=== PATIENT | female | born 1935 | race Caucasian/White ===

== ENCOUNTER 2017-12-19 00:42 | Emergency (ER) | payer OTHER ==
--- OUTSIDE RECORDS SUMMARY | 2017-12-19 00:45 | XMS REPORT | Clinical Summary ---
:1935 Author Organization [facility] Address [address] [place] [address] Care Team Providers Name Role Phone Edward Ceballos MD Primary Care Provider Allergies Active Allergy Reactions Severity Noted Date Comments Cephalexin Rash Low 09/01/2015 Penicillins Swelling, Rash High 09/01/2015 Current Medications Prescription Sig. Disp. Refills Start Date End Date Status zolpidem (AMBIEN) 5 MG Take 5 mg by Active tablet mouth nightly as needed for sleep. irbesartan (AVAPRO) Take 300 mg Active 300 MG tablet by mouth nightly. aspirin (ECOTRIN) 81 Take 81 mg Active MG enteric coated by mouth tablet daily. nitroglycerin Place 1 Active (NITRODUR) 0.4 mg/hr patch on the skin as needed. rosuvastatin (CRESTOR) Take 5 mg by Active 5 MG tablet mouth daily. esomeprazole (NexIUM) Take 1 30 capsule 3 11/20/2017 Active 40 MG capsule (40 9 capsuleIndications: mg total) by Gastroesophageal mouth daily reflux disease without before esophagitis breakfast. hydrALAZINE Take 10 mg 1 12/03/2017 Active (APRESOLINE) 10 MG by mouth tablet daily as needed. valsartan (DIOVAN) 160 Take 160 mg Discontinued MG tablet by mouth 8 daily. hydrALAZINE Take 10 mg Discontinued (APRESOLINE) 10 MG by mouth 3 8 tablet (three) times a day. simvastatin (ZOCOR) 20 Take 20 mg Discontinued MG tablet by mouth 8 nightly. diltiazem CD (CardIZEM Take 120 mg Discontinued CD) 120 MG 24 hr by mouth 8 capsule daily. Active Problems Problem Noted Date Small bowel obstruction (HCC) 12/10/2017 Encounters Date Type Specialty Care Team Description 12/14/2017 Procedure Pass Gastroenterology 12/13/2017 Anesthesia Event Gastroenterology Madhu, Jose Luis Casey MD 12/10/2017 Hospital General Internal Nathanael Napier Small bowel - Encounter Medicine MD Threesa obstruction (HCC) 12/14/2017 Denise Spann (Primary Dx) 12/10/2017 Emergency Emergency Medicine Nathanael Napier Pain of upper abdomen (Primary Dx); MD Theresa Gastroesophageal reflux disease, esophagitis presence not specified 11/20/2017 Office Visit Gastroenterology Dex Corley Gastroesophageal reflux disease without esophagitis (Primary Dx); MD Fidelina Constipation, unspecified constipation type after 12/18/2016 Social History Tobacco Use Types Packs/Day Years Used Date Never Smoker Smokeless Tobacco: Never Used Alcohol Use Drinks/Week oz/Week Comments Yes Sex Assigned at Date Recorded Not on file Last Filed Vital Signs Vital Sign Reading Time Taken Blood Pressure 149/81 12/14/2017 7:56 AM CDT Pulse 69 12/14/2017 7:56 AM CDT Temperature 36.1 C (96.9 F) 12/14/2017 7:56 AM CDT Respiratory Rate 16 12/14/2017 7:56 AM CDT Oxygen Saturation 94% 12/14/2017 7:56 AM CDT Inhaled Oxygen Concentration - - Weight 63.8 kg (140 lb 9.6 oz) 12/10/2017 9:10 PM CDT Height 154.9 cm (5' 1") 12/10/2017 9:10 PM CDT Body Mass Index 26.57 12/10/2017 9:10 PM CDT Plan of Treatment Health Maintenance Due Date Last Done Comments SHINGRIX VACCINE (#1) 1986 ZOSTER VACCINE 1996 PNEUMOCOCCAL POLYSACCHARIDE VACCINE AGE 65 AND OVER 2001 PNEUMOCOCCAL-13 2001 INFLUENZA VACCINE 09/26/2017 Procedures Procedure Name Priority Date/Time Associated Comments Diagnosis ESTIMATED GFR Routine 12/14/2017 3:40 Results for this AM CDT procedure are in the results section. BASIC METABOLIC PANEL Routine 12/14/2017 3:40 Results for this AM CDT procedure are in the results section. XR ABDOMEN 2 VW AP W Routine 12/13/2017 10:33 Results for this UPRIGHT AND/OR AM CDT procedure are in DECUBITUS the results section. ESTIMATED GFR Routine 12/13/2017 4:20 Results for this AM CDT procedure are in the results section. PHOSPHORUS LEVEL Routine 12/13/2017 4:20 Results for this AM CDT procedure are in the results section. MAGNESIUM LEVEL Routine 12/13/2017 4:20 Results for this AM CDT procedure are in the results section. CBC WITH PLATELET AND Routine 12/13/2017 4:20 Results for this DIFFERENTIAL AM CDT procedure are in the results section. BASIC METABOLIC PANEL Routine 12/13/2017 4:20 Results for this AM CDT procedure are in the results section. CONSULT TO OSTOMY CARE Routine 12/12/2017 3:30 NURSE PM CDT HC COMPLETE BLD COUNT STAT 12/12/2017 1:31 Results for this W/AUTO DIFF PM CDT procedure are in the results section. ESTIMATED GFR STAT 12/12/2017 12:40 Results for this PM CDT procedure are in the results section. PHOSPHORUS LEVEL STAT 12/12/2017 12:40 Results for this PM CDT procedure are in the results section. MAGNESIUM LEVEL STAT 12/12/2017 12:40 Results for this PM CDT procedure are in the results section. LACTIC ACID LEVEL STAT 12/12/2017 12:40 Results for this PM CDT procedure are in the results section. BASIC METABOLIC PANEL STAT 12/12/2017 12:40 Results for this PM CDT procedure are in the results section. XR ABDOMEN 1 VW Routine 12/11/2017 9:25 Results for this PORTABLE AM CDT procedure are in the results section. HEMOGLOBIN A1C Routine 12/11/2017 6:40 Results for this AM CDT procedure are in the results section. HC COMPLETE BLD COUNT Routine 12/11/2017 6:40 Results for this W/AUTO DIFF AM CDT procedure are in the results section. ESTIMATED GFR Routine 12/11/2017 4:30 Results for this AM CDT procedure are in the results section. COMPREHENSIVE METABOLIC Routine 12/11/2017 4:30 Results for this PANEL AM CDT procedure are in the results section. CBC WITH PLATELET AND Routine 12/11/2017 4:30 Results for this DIFFERENTIAL AM CDT procedure are in the results section. CT ABDOMEN PELVIS W STAT 12/10/2017 5:35 Results for this CONTRAST PM CDT procedure are in the results section. LACTIC ACID, I-STAT STAT 12/10/2017 5:10 Results for this PM CDT procedure are in the results section. HC COMPLETE BLD COUNT STAT 12/10/2017 5:10 Results for this W/AUTO DIFF PM CDT procedure are in the results section. TROPONIN, I-STAT Timed 12/10/2017 12:00 Results for this PM CDT procedure are in the results section. URINALYSIS STAT 12/10/2017 11:15 Results for this AM CDT procedure are in the results section. LACTIC ACID, I-STAT Timed 12/10/2017 8:58 Results for this AM CDT procedure are in the results section. ESTIMATED GFR STAT 12/10/2017 8:58 Results for this AM CDT procedure are in the results section. TROPONIN, I-STAT STAT 12/10/2017 8:58 Results for this AM CDT procedure are in the results section. CREATINE KINASE, TOTAL STAT 12/10/2017 8:58 Results for this (CPK) AM CDT procedure are in the results section. AMYLASE LEVEL STAT 12/10/2017 8:58 Results for this AM CDT procedure are in the results section. COMPREHENSIVE METABOLIC STAT 12/10/2017 8:58 Results for this PANEL AM CDT procedure are in the results section. HC COMPLETE BLD COUNT STAT 12/10/2017 8:58 Results for this W/AUTO DIFF AM CDT procedure are in the results section. ECG ED PRELIMINARY Routine 12/10/2017 8:52 Results for this INTERPRETATION AM CDT procedure are in the results section. ECG 12-LEAD STAT 12/10/2017 8:31 Results for this AM CDT procedure are in the results section. after 12/18/2016 Results Estimated GFR (12/14/2017 3:40 AM)Only the most recent of5 resultswithin the time period is included. Estimated GFR 86 mL/min/1.73 m2 [facility] DEPARTMENT OF Comment: PATHOLOGY AND GENOMIC CatergoryUnitsInterpretation MEDICINE G1 >=90 Normal or high G2 60-89Mildly decreased [id number] to moderately decreased [id number] to severely decreased G4 15-29Severely decreased G5 <15Kidney failure The eGFR was calculated using the Chronic Kidney Disease Epidemiology Collaboration (CKD-EPI) equation. Interpretation is based on recommendations of the National Kidney Foundation-Kidney Disease Outcomes Quality Initiative (NKF-KDOQI) published in 2014. Specimen Plasma specimen Performing Organization Address City/[facility]/Zipcode Phone Number [facility] DEPARTMENT OF PATHOLOGY AND [address] [place] [phone] [employer] Basic metabolic panel (12/14/2017 3:40 AM)Only the most recent of3 resultswithin the time period is included. Sodium 140 135 - 148 mEq/L [facility] DEPARTMENT OF PATHOLOGY AND GENOMIC MEDICINE Potassium 3.7 3.5 - 5.0 mEq/L [facility] DEPARTMENT OF PATHOLOGY AND GENOMIC MEDICINE Chloride 105 98 - 112 mEq/L [facility] DEPARTMENT OF PATHOLOGY AND GENOMIC MEDICINE CO2 24 24 - 31 mEq/L [facility] DEPARTMENT OF PATHOLOGY AND GENOMIC MEDICINE Anion gap 11@ANIO 7 - 15 mEq/L [facility] DEPARTMENT OF PATHOLOGY AND GENOMIC MEDICINE BUN 5 (L) 8 - 23 mg/dL [facility] DEPARTMENT OF PATHOLOGY AND GENOMIC MEDICINE Creatinine 0.58 0.50 - 0.90 mg/dL [facility] DEPARTMENT OF PATHOLOGY AND GENOMIC MEDICINE Glucose 90 65 - 99 mg/dL [facility] DEPARTMENT OF PATHOLOGY AND GENOMIC MEDICINE Calcium 8.5 (L) 8.8 - 10.2 mg/dL [facility] DEPARTMENT OF PATHOLOGY AND GENOMIC MEDICINE Specimen Plasma specimen Performing Organization Address City/[facility]/Zipcode Phone Number [facility] DEPARTMENT OF PATHOLOGY AND [address] [place] [address] [facility] [employer] XR Abdomen 2 Vw Ap W Upright And/Or Decubitus (12/13/2017 10:33 AM) Narrative Performed At EXAMINATION:XR ABDOMEN 2 VW AP W UPRIGHT AND OR DECUBITUS RADIANT CLINICAL HISTORY:Abd swellingascites suspected, Ped 5-18 yrsSBO suspected COMPARISON:12/11/2017 IMPRESSION: There is some increase in the degree of dilation of small bowel loops in the central abdomen, with a couple of air-fluid levels. Small bowel loops now measure up to 4.2 cm diameter, previously 3 cm diameter. The colon is nondilated. The findings are consistent with obstruction. No free air is seen. There is no acute or aggressive skeletal finding. [id number] Procedure Note Interface, Radiology Results Incoming - 12/13/2017 10:49 AM CDT EXAMINATION: XR ABDOMEN 2 VW AP W UPRIGHT AND OR DECUBITUS CLINICAL HISTORY: Abd swelling ascites suspected, Ped 5-18 yrs SBO suspected COMPARISON: 12/11/2017 IMPRESSION: There is some increase in the degree of dilation of small bowel loops in the central abdomen, with a couple of air-fluid levels. Small bowel loops now measure up to 4.2 cm diameter, previously 3 cm diameter. The colon is nondilated. The findings are consistent with obstruction. No free air is seen. There is no acute or aggressive skeletal finding. [facility]-[id number] Performing Organization Address City/State/Zipcode Phone Number [facility] [address] [place] [address] CBC with platelet and differential (12/13/2017 4:20 AM)Only the most recent of6 resultswithin the time period is included. WBC 6.21 4.50 - 11.00 k/uL [facility] DEPARTMENT OF PATHOLOGY AND GENOMIC MEDICINE RBC 3.87 (L) 4.20 - 5.50 m/uL [facility] DEPARTMENT OF PATHOLOGY AND GENOMIC MEDICINE HGB 10.9 (L) 12.0 - 16.0 g/dL [facility] DEPARTMENT OF PATHOLOGY AND GENOMIC MEDICINE HCT 34.1 (L) 37.0 - 47.0 % [facility] DEPARTMENT OF PATHOLOGY AND GENOMIC MEDICINE MCV 88.1 82.0 - 100.0 fL [facility] DEPARTMENT OF PATHOLOGY AND GENOMIC MEDICINE MCH 28.2 27.0 - 34.0 pg [facility] DEPARTMENT OF PATHOLOGY AND GENOMIC MEDICINE MCHC 32.0 31.0 - 37.0 g/dL [facility] DEPARTMENT OF PATHOLOGY AND GENOMIC MEDICINE RDW - SD 41.8 37.0 - 55.0 fL [facility] DEPARTMENT OF PATHOLOGY AND GENOMIC MEDICINE MPV 9.4 8.8 - 13.2 fL [facility] DEPARTMENT OF PATHOLOGY AND GENOMIC MEDICINE Platelet count 291 150 - 400 k/uL [facility] DEPARTMENT OF PATHOLOGY AND GENOMIC MEDICINE Nucleated RBC 0.30 /100 WBC [facility] DEPARTMENT OF PATHOLOGY AND GENOMIC MEDICINE Neutrophils 73.4 (H) 39.0 - 69.0 % [facility] DEPARTMENT OF PATHOLOGY AND GENOMIC MEDICINE Lymphocytes 15.9 (L) 25.0 - 45.0 % [facility] DEPARTMENT OF PATHOLOGY AND GENOMIC MEDICINE Monocytes 9.3 0.0 - 10.0 % [facility] DEPARTMENT OF PATHOLOGY AND GENOMIC MEDICINE Eosinophils 0.3 0.0 - 5.0 % [facility] DEPARTMENT OF PATHOLOGY AND GENOMIC MEDICINE Basophils 0.6 0.0 - 1.0 % [facility] DEPARTMENT OF PATHOLOGY AND GENOMIC MEDICINE Immature granulocytes 0.5Comment: 0.0 - 1.0 % [facility] DEPARTMENT OF "Immature PATHOLOGY AND GENOMIC granulocytes" MEDICINE (promyelocytes, myelocytes, metamyelocytes) Specimen Blood Performing Organization Address [facility] Phone Number [facility] DEPARTMENT OF PATHOLOGY AND [address] [place] [address] GENOMIC MEDICINE Phosphorus level (12/13/2017 4:20 AM)Only the most recent of2 resultswithin the time period is included. Phosphorus 2.3 (L) 2.4 - 4.5 mg/dL [facility] DEPARTMENT OF PATHOLOGY AND GENOMIC MEDICINE Specimen Plasma specimen Performing Organization Address [facility] [place] [place] Phone Number [facility] DEPARTMENT OF PATHOLOGY AND [address] [place] [address] GENOMIC MEDICINE Magnesium level (12/13/2017 4:20 AM)Only the most recent of2 resultswithin the time period is included. Magnesium 1.9 1.6 - 2.4 mg/dL [facility] DEPARTMENT OF PATHOLOGY AND GENOMIC MEDICINE Specimen Plasma specimen Performing Organization Address [facility] [place] [place] Phone Number [facility] DEPARTMENT OF PATHOLOGY AND [address] [place] [address] MEDICINE Lactic acid level (12/12/2017 12:40 PM) Lactic acid 2.1 0.5 - 2.2 mmol/L [facility] DEPARTMENT OF PATHOLOGY AND GENOMIC MEDICINE Specimen Plasma specimen Performing Organization Address [facility] [place] [place] Phone Number [facility] DEPARTMENT OF PATHOLOGY AND [address] [place] [address] GENOMIC MEDICINE XR Abdomen 1 Vw Portable (12/11/2017 9:25 AM) Narrative Performed At EXAMINATION: XR ABDOMEN 1 VW PORTABLE RADIANT INDICATION: partial SBO COMPARISON: CT of the abdomen and pelvis dated 12/10/2017 IMPRESSION: Multiple dilated loops of small bowel are noted in the lower abdomen and central pelvis. The largest measures up to 3.3 cm in size and appears overall similar compared to prior CT. No visible free air is seen in the abdomen. Left convex scoliosis lumbar spine with multilevel spondylosis. Clear lung bases. [id number] Procedure Note Hm Interface, Radiology Results Incoming - 12/11/2017 9:40 AM CDT EXAMINATION: XR ABDOMEN 1 VW PORTABLE INDICATION: partial SBO COMPARISON: CT of the abdomen and pelvis dated 12/10/2017 IMPRESSION: Multiple dilated loops of small bowel are noted in the lower abdomen and central pelvis. The largest measures up to 3.3 cm in size and appears overall similar compared to prior CT. No visible free air is seen in the abdomen. Left convex scoliosis lumbar spine with multilevel spondylosis. Clear lung bases. [id number] Performing Organization Address [facility]/Zipcode Phone Number [facility] [address] [place] [address] Hemoglobin A1c (12/11/2017 6:40 AM) Hemoglobin A1C 5.8 (H) 4.0 - 5.6 % [facility] DEPARTMENT OF PATHOLOGY Comment: AND [employer] MEDICINE HbA1c cutoffs for diagnosing diabetes: 4.0% - 5.6%=normal 5.7% - 6.4%=increased risk for diabetes (prediabetes) >=6.5%=diabetes Goals for glycemic control (ADA 2016) < 7.0%Target for non adults with diabetes. More or less stringent targets may be appropriate for individual patients. <7.5% Target for Children and adolescents with type 1 diabetes. Specimen Blood Performing Organization Address City/[facility] Phone Number [facility] DEPARTMENT OF PATHOLOGY AND [address] [place] [address] GENOMIC MEDICINE Comprehensive metabolic panel (12/11/2017 4:30 AM)Only the most recent of2 resultswithin the time period is included. Sodium 135 135 - 148 mEq/L [facility] DEPARTMENT OF PATHOLOGY AND GENOMIC MEDICINE Potassium 4.5 3.5 - 5.0 mEq/L [facility] DEPARTMENT OF PATHOLOGY AND GENOMIC MEDICINE Chloride 101 98 - 112 mEq/L [facility] DEPARTMENT OF PATHOLOGY AND GENOMIC MEDICINE CO2 22 (L) 24 - 31 mEq/L [facility] DEPARTMENT OF PATHOLOGY AND GENOMIC MEDICINE Anion gap 12@ANIO 7 - 15 mEq/L [facility] DEPARTMENT OF PATHOLOGY AND GENOMIC MEDICINE BUN 9 8 - 23 mg/dL [facility] DEPARTMENT OF PATHOLOGY AND GENOMIC MEDICINE Creatinine 0.64 0.50 - 0.90 mg/dL [facility] DEPARTMENT OF PATHOLOGY AND GENOMIC MEDICINE Glucose 83 65 - 99 mg/dL [facility] DEPARTMENT OF PATHOLOGY AND GENOMIC MEDICINE Calcium 8.9 8.8 - 10.2 mg/dL [facility] DEPARTMENT OF PATHOLOGY AND GENOMIC MEDICINE Protein 5.9 (L) 6.3 - 8.3 g/dL [facility] DEPARTMENT OF Comment: PATHOLOGY AND GENOMIC 4.6-7.0 g/dL MEDICINE 1 week 4.4-7.6 g/dL 7 months-1year5.1-7.3 g/dL 1-2 years5.6-7.5 g/dL >3 years6.0-8.0 g/dL 18-150 6.3-8.3 g/dL Albumin 3.2 (L) 3.5 - 5.0 g/dL [facility] DEPARTMENT OF PATHOLOGY AND GENOMIC MEDICINE A/G ratio 1.2 0.7 - 3.8 [facility] DEPARTMENT OF PATHOLOGY AND GENOMIC MEDICINE Alkaline phosphatase 58 35 - 104 U/L [facility] DEPARTMENT OF PATHOLOGY AND GENOMIC MEDICINE AST 30 10 - 35 U/L [facility] DEPARTMENT OF PATHOLOGY AND GENOMIC MEDICINE ALT 14 5 - 50 U/L [facility] DEPARTMENT OF PATHOLOGY AND GENOMIC MEDICINE Total bilirubin 0.7 0.0 - 1.2 mg/dL [facility] DEPARTMENT OF PATHOLOGY AND GENOMIC MEDICINE Specimen Plasma specimen Performing Organization Address City/State/Zipcode Phone Number [facility] DEPARTMENT OF PATHOLOGY AND [address] [place] [address] [facility] [address] Abdomen Pelvis W Contrast (12/10/2017 5:35 PM) Narrative Performed At EXAMINATION:CT ABDOMEN PELVIS W CONTRAST RADIANT CLINICAL HISTORY:Abd painunspecified TECHNIQUE: Multiple axial images of the abdomen and pelvis were obtained following intravenous administration of iodinated contrast. Sagittal and coronal computerized reformatted images were also obtained. Approximately 75 cc of Omnipaque [address] scan performed using radiation dose reduction techniques. Technical factors are evaluated and adjusted to ensure appropriate moderation of exposure. Automated dose management technology is applied to adjust the radiation dose to minimize expose whileachieving a diagnostic quality image. COMPARISON:None. FINDINGS: Lung bases: Bibasilar dependent atelectasis is noted. The lung bases are otherwise unremarkable. Liver: There is no intrahepatic biliary dilatation or mass. The liver is normal in attenuation, contour and size. Gallbladder: Unremarkable. Pancreas: The pancreas is normal in caliber and attenuation. No inflammatory process. The pancreatic duct is within normal limits. Spleen: The spleen is normal in appearance.. Kidneys and ureters: The kidneys function symmetrically. An approximately 7 mm cyst is seen within the midpole of the left kidney. There is no enhancing renal lesion. No hydronephrosis or renal stone. The ureters are normal in course and caliber. Adrenal glands: Unremarkable. GI tract: Air-fluid distention of multiple small bowel loops is seen. The largest distended small bowel loop measures approximately 2.3 cm. There is a transition point within the left lower quadrant, series 2 image #[id number] and series 301B image #23 through 30. Findings suggestive of moderate grade partial small bowel obstruction, probably secondary to adhesion. The colon is poorly distended. The colon is otherwise unremarkable. No bowel wall thickening is identified. There is no acute inflammatory process. The appendix not seen. No right lower quadrant inflammation is seen. The stomach is unremarkable. Fluid: Small perihepatic ascites is seen.. Pelvis: Bladder: The urinary bladder is unremarkable. Genitalia: The uterus is atrophy absent.. Fluid: Small physiologic free pelvic fluid is seen.. Bones: Unremarkable. Retroperitoneum/intraperitoneum: No retroperitoneal or mesenteric pathologic lymphadenopathy is seen. Vasculature: Scattered atherosclerotic calcifications of the abdominal aorta and iliac arteries are noted. No evidence of aortic aneurysm or dissection.The mesenteric vessels and visceral vessel are patent. Abdominal wall: Unremarkable. IMPRESSION: Findings suggestive of moderate grade partial distal small bowel obstruction, probably secondary to adhesion. Recommend clinical correlation. Unremarkable exam otherwise. [id number] Procedure Note Hm Interface, Radiology Results Incoming - 12/10/2017 5:50 PM CDT EXAMINATION: CT ABDOMEN PELVIS W CONTRAST CLINICAL HISTORY: Abd pain unspecified TECHNIQUE: Multiple axial images of the abdomen and pelvis were obtained following intravenous administration of iodinated contrast. Sagittal and coronal computerized reformatted images were also obtained. Approximately 75 cc of Omnipaque [address] scan performed using radiation dose reduction techniques. Technical factors are evaluated and adjusted to ensure appropriate moderation of exposure. Automated dose management technology is applied to adjust the radiation dose to minimize expose while achieving a diagnostic quality image. COMPARISON: None. FINDINGS: Lung bases: Bibasilar dependent atelectasis is noted. The lung bases are otherwise unremarkable. Liver: There is no intrahepatic biliary dilatation or mass. The liver is normal in attenuation, contour and size. Gallbladder: Unremarkable. Pancreas: The pancreas is normal in caliber and attenuation. No inflammatory process. The pancreatic duct is within normal limits. Spleen: The spleen is normal in appearance.. Kidneys and ureters: The kidneys function symmetrically. An approximately 7 mm cyst is seen within the midpole of the left kidney. There is no enhancing renal lesion. No hydronephrosis or renal stone. The ureters are normal in course and caliber. Adrenal glands: Unremarkable. GI tract: Air-fluid distention of multiple small bowel loops is seen. The largest distended small bowel loop measures approximately 2.3 cm. There is a transition point within the left lower quadrant, series 2 image #[id number] and series 301B image #23 through 30. Findings suggestive of moderate grade partial small bowel obstruction, probably secondary to adhesion. The colon is poorly distended. The colon is otherwise unremarkable. No bowel wall thickening is identified. There is no acute inflammatory process. The appendix not seen. No right lower quadrant inflammation is seen. The stomach is unremarkable. Fluid: Small perihepatic ascites is seen.. Pelvis: Bladder: The urinary bladder is unremarkable. Genitalia: The uterus is atrophy absent.. Fluid: Small physiologic free pelvic fluid is seen.. Bones: Unremarkable. Retroperitoneum/intraperitoneum: No retroperitoneal or mesenteric pathologic lymphadenopathy is seen. Vasculature: Scattered atherosclerotic calcifications of the abdominal aorta and iliac arteries are noted. No evidence of aortic aneurysm or dissection. The mesenteric vessels and visceral vessel are patent. Abdominal wall: Unremarkable. IMPRESSION: Findings suggestive of moderate grade partial distal small bowel obstruction, probably secondary to adhesion. Recommend clinical correlation. Unremarkable exam otherwise. [id number] Performing Organization Address City/State/Zipcode Phone Number [facility] [address] [place] [address] Lactic acid, I-Stat (12/10/2017 5:10 PM)Only the most recent of2 resultswithin the time period is included. Lactic acid, I-Stat 1.1 0.5 - 2.2 mmol/L [facility] Specimen Plasma specimen Performing Organization Address City/State/Zipcode Phone Number DEPARTMENT OF PATHOLOGY AND [address] [place] [address] [facility] Troponin, I-Stat (12/10/2017 12:00 PM)Only the most recent of2 resultswithin the time period is included. Troponin, I-Stat 0.01 0.00 - 0.08 ng/mL DEPARTMENT OF Comment: PATHOLOGY AND GENOMIC 0.09 - 1.49 ng/mlMay indicate increased risk of acute [facility] coronary syndrome. [facility] >=1.5 ng/mlConsistent with acute myocardial infarction. The diagnostic value of a single normal or non-diagnostic result is questionable.Serial samples at 2-6 hour intervals are required to rule out acute myocardial injury. Specimen Plasma specimen Performing Organization Address City/State/Zipcode Phone Number DEPARTMENT OF PATHOLOGY AND [address] [place] [address] Urinalysis (12/10/2017 11:15 AM) Glucose, UA Negative Negative [facility] Bilirubin, UA Negative Negative [facility] Ketones, UA 3+ (A) Negative [facility] Specific gravity, UA 1.020 1.001 - 1.035 [facility] Blood, UA Trace (A) Negative [facility] pH, UA 6.5 5.0 - 8.5 [facility] Protein, UA Trace (A) Negative [facility] Urobilinogen, UA <2.0 <2.0 [facility] Nitrite, UA Negative Negative [facility] Leukocyte esterase, UA Negative Negative [facility] Color, UA Yellow [facility] Appearance, UA Clear [facility] Specimen Urine Performing Organization Address [facility] Phone Number DEPARTMENT OF PATHOLOGY AND [address] [place] [address] Creatine kinase, total (CPK) (12/10/2017 8:58 AM) Creatine kinase 155 30 - 190 U/L [facility] Specimen Plasma specimen Performing Organization Address City/[facility]/Zipcode Phone Number DEPARTMENT OF PATHOLOGY AND [address] [place] [address] Amylase level (12/10/2017 8:58 AM) Amylase 56 14 - 97 U/L DEPARTMENT OF PATHOLOGY AND GENOMIC [facility] Specimen Plasma specimen Performing Organization Address City/State/Zipcode Phone Number DEPARTMENT OF PATHOLOGY AND [address] [place] [address] [facility] ECG ED Preliminary Interpretation - NOT AN ORDER (12/10/2017 8:52 AM) Narrative Performed At Nathanael Napier MD 12/10/20171:38 PM ECG ED Preliminary Interpretation - Not an Order Performed by: NATHANAEL NAPIER Authorized by: NATHANAEL NAPIER ECG reviewed by ED Physician in the absence of a resistance brazer: yes Previous ECG: Previous ECG:Unavailable Interpretation: Interpretation: abnormal Quality: Tracing quality:Limited by artifact Rate: ECG rate:83 ECG rate assessment: normal Rhythm: Rhythm: sinus rhythm Ectopy: Ectopy: none QRS: QRS axis:Left Conduction: Conduction: abnormal Abnormal conduction: complete LBBB ST segments: ST segments:Normal T waves: T waves: inverted Inverted:AVL Comments: History of LBBB ECG 12 lead (12/10/2017 8:31 AM) Ventricular rate 83 [facility] Atrial rate 83 [facility] MD interval 190 [facility] QRSD interval 130 [facility] QT interval 398 [facility] QTC interval 467 [facility] P axis 1 48 [facility] QRS axis 1 -38 [facility] T wave axis 80 [facility] EKG impression Normal sinus rhythm-Left axis deviation-Left [facility] bundle branch block-Abnormal ECG-- Performing Organization Address City/State/Zipcode Phone Number [facility] [address] [place] [address] after 12/18/2016 Insurance Payer Benefit Plan / Group Subscriber ID Type Phone Address MEDICARE MEDICARE PART A AND B xxxxxxxxxxx Medicare [place], [place]
[2017-12-19] MEDS ORDERED: cloNIDine HCl 0.1 MG TAB ONE (01:41)
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
--- NOTE | 2017-12-19 08:06 | RAD REPORT ---
EXAM DESCRIPTION: USExtremity Venous Uni Ltd12/19/2017 2:02 am CLINICAL HISTORY: Right leg pain and swelling. COMPARISON: None. FINDINGS: Right common femoral, superficial femoral, popliteal and right posterior tibial veins are compressible and demonstrate augmentation. Doppler demonstrates good flow. IMPRESSION: No evidence of deep venous thrombosis involving the right lower extremity.
== END 2017-12-19 02:45 | disposition home or self-care (01) ==
LOC: ER 00:42
DX: I10 Essential (primary) hypertension (principal); E78.00 Pure hypercholesterolemia, unspecified; Z88.0 Allergy status to penicillin; Z88.8 Allergy status to other drugs, medicaments and biological substances
CPT/HCPCS: 93971; 99283

== ENCOUNTER 2020-03-08 15:27 | Observation (INO) | payer OTHER ==
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
[2020-03-08 17:13] VITALS: BMI 24.3
[2020-03-08 17:55] LABS: Absolute Lymphocytes (CBC) 1.4 K/uL (0.7-4.9); Basophils % 0.9 % (0-1.3); Hematocrit 39.1 % (36.0-45.0); Lymphocytes % 33.5 % (15.3-44.8); MPV 7.4 fL (7.6-11.3)
[2020-03-08 17:57] LABS: Protime INR 1.08
[2020-03-08] MEDS ORDERED: PNEUMOCOCCAL VACCINE 0.5 ML IMVAC ONE (18:00)
[2020-03-08] MEDS ORDERED: INFLUENZA VACCINE (for 3y+) 0.5 ML DOSE IMVAC ONE (18:00)
[2020-03-08] MEDS: ENOXAPARIN 40 MG/0.4 ML SQ SCH (18:18)
[2020-03-08 18:40] LABS: Albumin 4.2 g/dL (3.4-5.0); Bilirubin Direct 0.1 mg/dL (0-0.2); Bilirubin Total 0.7 mg/dL (0.2-1.0); Magnesium 2.1 mg/dL (1.8-2.4); Phosphorus 3.4 mg/dL (2.5-4.9); Potassium 3.7 mmol/L (3.5-5.1); Protein, Total 7.4 g/dL (6.4-8.2); Thyroid Stimulating Hormone 3.55 uIU/mL (0.360-3.740)
[2020-03-08] MEDS ORDERED: DIPHENHYDRAMINE 25 MG TAB/CAP PO PRN (19:00)
[2020-03-08] MEDS ORDERED: ACETAMINOPHEN 325 MG TABLET PO PRN (19:00)
[2020-03-08] MEDS ORDERED: NACHLORIDE 0.45% 1,000 ML IV SCH (19:00)
[2020-03-08] MEDS ORDERED: LOPERAMIDE HCL 2 MG CAPSULE PO PRN (19:00)
[2020-03-08] MEDS ORDERED: ONDANSETRON 4 MG/2 ML VIAL IV PRN (19:00)
[2020-03-08] MEDS ORDERED: ONDANSETRON 4 MG (ODT) TAB PO PRN (19:00)
[2020-03-08] MEDS ORDERED: POLYETHYL GLY 3350 17 GM/DOSE PO PRN (19:00)
[2020-03-08] MEDS ORDERED: POTASSIUM CL SA 10 MEQ TAB PO ONE (19:09)
--- NOTE | 2020-03-08 20:16 | RAD REPORT ---
EXAM DESCRIPTION: CTAbdomen Pelvis W Contrast - 03/08/2020 8:08 pm CLINICAL HISTORY: Abdominal pain. abdominal pain COMPARISON: No comparisons TECHNIQUE: Biphasic CT imaging of the abdomen and pelvis was performed with 100 ml non-ionic IV cont rast. All CT scans are performed using dose optimization technique as appropriate and may include automated exposure control or mA/KV adjustment according to patient size. FINDINGS: The lung bases are clear.Small hiatal hernia. The liver contains small low-density lesions, nonspecific but likely benign the spleen, adrenal, panc reas and kidneys are within normal limits. No bowel obstruction, free air, free fluid or abscess. Sigmoid diverticulosis coli is present without diverticulitis. Appendectomy. No evidence of significant lymphadenopathy. Moderate lumbosacral degenerative changes. IMPRESSION: No acute intra-abdominal or pelvic finding. Sigmoid diverticulosis coli without diverticulitis.
--- NOTE | 2020-03-08 20:29 | RAD REPORT ---
EXAM DESCRIPTION: RAD - Chest Pa And Lat (2 Views) - 03/08/2020 8:16 pm CLINICAL HISTORY: abdominal pain Chest pain. COMPARISON: CHEST PA AND LAT 2 VIEW dated 03/09/2014 FINDINGS: The lungs are clear. The heart is normal in size. No displaced fractures. IMPRESSION: No acute or concerning finding suspected.
[2020-03-08] MEDS ORDERED: ZOLPIDEM TARTRATE 5 MG PO SCH (21:00)
[2020-03-08 23:42] LABS: Urine Appearance CLEAR; Urine Bilirubin NEGATIVE (NEG); Urine Blood NEGATIVE (NEG); Urine Color YELLOW; Urine Glucose NEGATIVE (NEG); Urine Protein NEGATIVE (NEG); Urine Specific Gravity 1.025 (1.005-1.030); Urine Urobilinogen 0.2 mg/dL (0.2-1.0)
[2020-03-08 23:45] LABS: Urine Microscopic Reflex NO UMIC
[2020-03-09 05:47] LABS: Absolute Lymphocytes (CBC) 1.5 K/uL (0.7-4.9); Basophils % 0.7 % (0-1.3); Hematocrit 36.2 % (36.0-45.0); MPV 7.4 fL (7.6-11.3); RBC Red Blood Cell Count 4.29 M/uL (3.86-4.86)
[2020-03-09 05:55] LABS: BUN Blood Urea Nitrogen 9 mg/dL (7-18); Bicarbonate 30 mmol/L (21-32); Glucose Level 79 mg/dL (74-106); Magnesium 2.3 mg/dL (1.8-2.4); Potassium 4.2 mmol/L (3.5-5.1); Sodium Level 137 mmol/L (136-145)
[2020-03-09] MEDS: ENOXAPARIN 40 MG/0.4 ML SQ SCH (08:24)
[2020-03-09] MEDS ORDERED: HOME MED 1 EA UNK (Olmesartan Medoxomil [Benicar] 40 MG Tablet) PO SCH (09:00)
[2020-03-09] MEDS ORDERED: ROSUVASTATIN 10 MG PO SCH (09:00)
[2020-03-09] MEDS ORDERED: AMLODIPINE 5 MG PO SCH (09:00)
[2020-03-09 14:04] VITALS: BP 160/72; TEMP 98.4
[2020-03-09] MEDS ORDERED: HOME MED 1 EA UNK (Rosuvastatin [Crestor*] 5 MG) PO SCH (21:00)
--- NOTE | 2020-03-10 06:11 | EKG ---
Test Date: 2020-03-08 Test Time: 19:52:28 Senior Clinical Project Manager: DESMOND MEASUREMENT RESULTS: Intervals: Rate: 65 UT: 192 QRSD: 90 QT: 410 QTc: 426 [place]: P: 42 UT: 192 QRS: -22 T: 38 INTERPRETIVE STATEMENTS: Normal sinus rhythm Septal infarct, age undetermined Abnormal ECG Compared to ECG 10/09/2004 06:01:00 Myocardial infarct finding now present Sinus bradycardia no longer present Electronically Signed On 03-10-20 06:09:14 CASTING MACHINE CONTROL BOARD OPERATOR by Daniel Hooker
[2020-03-12 15:56] LABS: Vitamin D 1,25-Dihydroxy Total 52 pg/mL (18-72); Vitamin D,1,25-OH2, D2 <8 pg/mL
== END 2020-03-09 13:53 | disposition home or self-care (01) ==
LOC: 2ND 16:28
PROVIDERS: ADMIT Internal Medicine; ATTEND Internal Medicine
DX: K59.00 Constipation, unspecified (principal); I10 Essential (primary) hypertension; Z20.822 Contact with and (suspected) exposure to COVID-19; R94.31 Abnormal electrocardiogram [ECG] [EKG]
CPT/HCPCS: 93005; 87040; 85025 ×2; 80048 ×2; 36415 ×2; 83735 ×2; 84100; 85610; 80076; 85730; 82652; 84443; 81003; 82607; 74177; 71046; U0002; Q9967; J1650; G0379; G0378 ×2

== ENCOUNTER 2021-09-24 11:13 | Emergency (ER) | payer OTHER ==
[2021-09-24 13:14] LABS: Urine Blood Trace-intact (Negative); Urine Glucose Negative (Negative); Urine Protein Negative (Negative)
[2021-09-24 13:20] LABS: Absolute Lymphocytes (CBC) 1.2 K/uL (0.7-4.9); Hematocrit 40.4 % (36.0-45.0); Lymphocytes % 19.4 % (15.3-44.8); MCV 84.8 fL (80-100); MPV 6.7 fL (7.6-11.3); RBC Red Blood Cell Count 4.76 M/uL (3.86-4.86)
[2021-09-24 13:40] LABS: Potassium 4.1 mmol/L (3.5-5.1)
[2021-09-24 14:02] LABS: Urine Bacteria <20 /HPF (<20); Urine RBC <5 /HPF (None Seen)
--- NOTE | 2021-09-24 14:15 | ER ---
Nurse's Notes [facility] Name: Afua Davila Age: 86 yrs Sex: Female : 1935 Arrival Date: 09/24/2021 Time: 11:14 Bed 10 Private MD: Edward Ceballos V Diagnosis: Dysuria Presentation: 09/24 11:56 Chief complaint: Patient states: "I went to urgent care the other day and they said I ss have a UTI. They put me on Cipro, but I don't think it's working." Pt c/o fatigue and burning with urination. Coronavirus screen: Client denies travel out of the [place] in the last 14 days. Ebola Screen: Patient denies exposure to infectious person. Patient denies travel to an Ebola-affected area in the 21 days before illness onset. Initial Sepsis Screen: Does the patient meet any 2 criteria? No. Patient's initial sepsis screen is negative. Does the patient have a suspected source of infection? Yes: Dysuria/Frequency/Urgency/UTI. Risk Assessment: Do you want to hurt yourself or someone else? Patient reports no desire to harm self or others. Onset of symptoms was September 14, 2021. 11:56 Method Of Arrival: Ambulatory ss 11:56 Acuity: GABRIEL 2 ss Historical: - Allergies: 11:59 Keflex; ss 11:59 PENICILLINS; ss - PMHx: 11:59 High Cholesterol; Hypertension; ss Vital Signs: 11:56 BP 192 / 78; Pulse 72; Resp 16; Temp 98.0; Pulse Ox 100% on R/A; Weight 54.43 kg; ss Height 5 ft. 1 in. (154.94 cm); Pain 0/10; 11:56 Body Mass Index 22.67 (54.43 kg, 154.94 cm) ED Course: 11:14 Patient arrived in ED. mr 11:14 Edward Ceballos MD is Private Physician. mr 11:24 Bree Zee MD is Attending Physician. sd2 11:59 Triage completed. ss 13:41 Inserted saline lock: 20 gauge in right antecubital area, using aseptic technique. zm Blood collected. 13:42 Urine Microscopic Only Sent. zm 14:14 Edward Ceballos MD is Referral Physician. sd2 Administered Medications: No medications were administered Outcome: 14:14 Discharge ordered by . sd2 14:23 Patient left the ED. Signatures: Rosario wSartz Shelby, RN RN ss Baxter, Heather, RN RN hb Martinez, Zaina zm Dunlop, Stephanie, MD MD sd2
--- NOTE | 2021-09-24 14:15 | EDPHYS ---
Physician Documentation [facility] Name: Afua Davila Age: 86 yrs Sex: Female : 1935 Arrival Date: 09/24/2021 Time: 11:14 Bed 10 Private MD: Edward Ceballos V ED Physician Bree Zee HPI: 09/24 11:56 This 86 yrs old Female presents to ER via Unassigned with complaints of Urinary Problem.sd2 11:56 86 yo F presents with CC of dysuria and urinary frequency for the past week. Reports sd2 being seen at [facility] and treated with Cipro last week for UTI but symptoms have persisted. She was able to view her culture result on the computer at home which showed 10-40,000 Proteus. She does not have the copy of the culture with her or know the susceptibilities. She reports she now has some bilateral flank pain and chills that started last night. Denies fever, CP, SOB, vomiting or diarrhea.. Historical: - Allergies: 11:59 Keflex; ss 11:59 PENICILLINS; ss - PMHx: 11:59 High Cholesterol; Hypertension; ss ROS: 11:56 Constitutional: Negative for fever, chills, and weight loss, Eyes: Negative for injury, sd2 pain, redness, and discharge, Cardiovascular: Negative for chest pain, palpitations, and edema, Respiratory: Negative for shortness of breath, cough, wheezing. 11:56 MS/Extremity: Negative for injury and deformity, Skin: Negative for injury, rash, and discoloration, Neuro: Negative for headache, numbness and tingling. 11:56 Abdomen/GI: Negative for abdominal pain, nausea and vomiting, diarrhea. 11:56 : Positive for urinary symptoms, flank pain, urinary frequency, burning with urination. Exam: 11:56 Constitutional: This is a well developed, well nourished patient who is awake, alert, sd2 and in no acute distress. Head/Face: Normocephalic, atraumatic. Cardiovascular: Regular rate and rhythm with a normal S1 and S2. No gallops, murmurs, or rubs. 2+ distal pulses. Respiratory: Lungs have equal breath sounds bilaterally, clear to auscultation and percussion. No rales, rhonchi or wheezes noted. No increased work of breathing, no retractions or nasal flaring. Abdomen/GI: Soft, non-tender, with normal bowel sounds. No guarding or rebound. No evidence of tenderness throughout. Back: No spinal tenderness. Mild bilateral CVA tenderness. Full range of motion. Skin: Warm, dry with normal turgor. Normal color with no rashes, no lesions, and no evidence of cellulitis. MS/ Extremity: Pulses equal, no cyanosis. Neurovascular intact. Full, normal range of motion. Ambulatory without difficulty. Psych: Awake, alert, with orientation to person, place and time. Behavior, mood, and affect are within normal limits. Vital Signs: 11:56 BP 192 / 78; Pulse 72; Resp 16; Temp 98.0; Pulse Ox 100% on R/A; Weight 54.43 kg; ss Height 5 ft. 1 in. (154.94 cm); Pain 0/10; 11:56 Body Mass Index 22.67 (54.43 kg, 154.94 cm) ss MDM: 11:56 Patient medically screened. sd2 11:56 Differential Diagnosis UTI, pyelonephritis, electrolyte abnormality, dehydration among sd2 others. Data reviewed: vital signs, nurses notes. 15:09 Counseling: I had a detailed discussion with the patient and/or guardian regarding: the sd2 historical points, exam findings, and any diagnostic results supporting the discharge/admit diagnosis, lab results, the need for outpatient follow up, to return to the emergency department if symptoms worsen or persist or if there are any questions or concerns that arise at home. Medical screen evaluation completed. [facility] emergency medical condition absent. ED course: Discussed case with patient regarding urine that does not appear still infected today. Urine culture results obtained that did not show sensitivity to Cipro. Unknown why continued dysuria. Advised continued Azo, Tylenol and Ibuprofen. Discussed starting Cefdinir if continued symptoms with supportive care and need for follow up with PCP and Urology. Pt verbalizes understanding of discharge plan and strict return precautions.. 09/24 12:08 Order name: Urine Microscopic Only; Complete Time: 14:05 sd2 09/24 12:08 Order name: CBC with Diff; Complete Time: 14:05 sd2 09/24 12:08 Order name: Urine Dipstick-Ancillary (obtain specimen); Complete Time: 13:42 sd2 09/24 12:08 Order name: BMP; Complete Time: 14:05 sd2 09/24 13:15 Order name: Urine Dipstick-Ancillary; Complete Time: 14:05 EDMS Administered Medications: No medications were administered Disposition Summary: 09/24/21 14:14 Discharge Ordered Location: Home sd2 Problem: an ongoing problem sd2 Symptoms: are unchanged sd2 Condition: Stable sd2 Diagnosis - Dysuria sd2 Followup: sd2 - With: Edward Ceballos MD - When: 2 - 3 days - Reason: Recheck today's complaints, Continuance of care, Re-evaluation by your physician Followup: sd2 - With: Emergency Department - When: As needed - Reason: Discharge Instructions: - Discharge Summary Sheet sd2 - Dysuria sd2 - Urinary Tract Infection, Adult sd2 Forms: - Medication Reconciliation Form sd2 - Thank You Letter sd2 - Antibiotic Education sd2 - Prescription Opioid Use sd2 Prescriptions: - CEFDINIR 300 MG oral tablet - take 1 tablet by ORAL route 2 times per day for 7 days; 14 tablet; Refills: 0, sd2 Product Selection Permitted Signatures: Dispatcher [employer] EDKylah Muhammad RN RN ss Dunlop, Stephanie, MD MD sd2
[2021-09-24 14:47] VITALS: BP 192/78; TEMP 98; O2SAT 100
== END 2021-09-24 14:23 | disposition home or self-care (01) ==
LOC: ER 11:13
DX: R30.0 Dysuria (principal); R10.9 Unspecified abdominal pain; I10 Essential (primary) hypertension; Z88.0 Allergy status to penicillin; Z88.1 Allergy status to other antibiotic agents
CPT/HCPCS: 36415; 80048; 81003; 81015; 85025; 99283